=== PATIENT | male | born 1960 | race Caucasian/White ===

== ENCOUNTER 2020-09-10 06:37 | Day surgery (SDC) | payer OTHER ==
[2020-09-10] MEDS ORDERED: Sodium Chloride 0.9% 1,000 ML IV SCH (07:00)
[2020-09-10] MEDS ORDERED: fentaNYL 100 MCG/2 ML SDV ONE (07:12)
[2020-09-10] MEDS ORDERED: Propofol 200 MG/20 ML SDV ONE (07:12)
[2020-09-10] MEDS ORDERED: Midazolam 1 MG/ML 2 ML SDV ONE (07:12)
[2020-09-10 10:46] VITALS: BP 101/67; PULSE 69
--- NOTE | 2020-09-10 13:17 | PROC ---
DATE OF PROCEDURE: 09/10/2020 SURGEON: Wally Cosby MD INDICATIONS: Bobby is a 59-year-old male who had a positive Cologuard test, comes in for a colonoscopy. PROCEDURE IN DETAIL: The risks and benefits were explained to the patient and was taken to the OR. Anesthesia was given by nurse cryptological technician. During the procedure, we used 2 mg of Versed, 2 mcg of fentanyl and 200 mg of propofol. The Olympus 180L scope was used. The rectum was examined with a gloved finger and the prostate was a grade 3/6 symmetric, round, soft. The tube was placed into the rectum and advanced under direct vision. We did get to the cecum with minimal difficulty. A picture was taken of that area. Slow retraction of the tube noted no lesions or ulceration or abnormality throughout the entire colon. The tube was removed. The patient tolerated the procedure well. PREOPERATIVE DIAGNOSIS: Positive Cologuard test. POSTOPERATIVE DIAGNOSIS: Normal colon from cecum to rectum. Normal screening should be done for this gentleman. Wally Cosby MD /[id number]
== END 2020-09-10 10:30 | disposition home or self-care (01) ==
LOC: JP.SDS 06:37
PROVIDERS: ATTEND Internal Medicine
DX: R19.5 Other fecal abnormalities (principal); I10 Essential (primary) hypertension; Z01.812 Encounter for preprocedural laboratory examination; Z20.828 Contact with and (suspected) exposure to other viral communicable diseases
CPT/HCPCS: 45378; 87635; J2250; J2704; J3010; J7030; U0002